=== PATIENT | male | born 1990 | race Caucasian/White ===

== ENCOUNTER → 2016-06-22 | Outpatient (CLI) | payer BC ==
[2016-06-22 13:58] LABS: MEAN CORPUSCULAR HEMOGLOBIN 31.6 pg (27.0-33.0); MEAN CORPUSCULAR HGB CONC 33.8 g/dl (32.0-36.5); MEAN CORPUSCULAR VOLUME 93.4 fl (80.0-96.0); RED CELL DISTRIBUTION WIDTH 11.9 % (11.5-14.5); WHITE BLOOD COUNT 5.8 K/mm3 (4.0-10.0)
[2016-06-22 14:25] LABS: HEPATITIS B SURFACE ANTIBODY POSITIVE (POSITIVE)
[2016-06-22 14:40] LABS: ALBUMIN 4.2 GM/DL (3.2-5.2); ALBUMIN/GLOBULIN RATIO 1.31 (1.00-1.93); ALKALINE PHOSPHATASE 50 U/L (45-117); ALT/SGPT 18 U/L (12-78); ANION GAP 10 MEQ/L (8-16); AST/SGOT 12 U/L (15-37); BILIRUBIN,TOTAL 0.6 MG/DL (0.2-1.0); BLOOD UREA NITROGEN 14 MG/DL (7-18); CALCIUM LEVEL 9.1 MG/DL (8.5-10.1); CARBON DIOXIDE LEVEL 30 MEQ/L (21-32); CHLORIDE LEVEL 101 MEQ/L (98-107); CREATININE FOR GFR 1.07 MG/DL (0.70-1.30); GLOMERULAR FILTRATION RATE > 60.0 (>60); GLUCOSE, FASTING 71 MG/DL (70-105); SODIUM LEVEL 141 MEQ/L (136-145); TOTAL PROTEIN 7.4 GM/DL (6.4-8.2)
[2016-06-24 08:06] LABS: ALT 14 IU/L (0-55); GGT 11 IU/L (0-65); HAPTOGLOBIN 96 mg/dL (34-200); NECROINFLAM SCORE 0.03 (0.00-0.17); NECROINFLAMM GRADE A0-No activity (.); TOTAL BILIRUBIN 0.6 mg/dL (0.0-1.2)
[2016-06-25 00:07] LABS: HEPATITIS C QUANTITATION HCV Not Detected IU/mL (.)
== END | disposition home or self-care (01) ==
LOC: M LAB 12:42
PROVIDERS: ATTEND Internal Medicine Cardiovascular Disease
DX: B18.2 Chronic viral hepatitis C (principal); B16.9 Acute hepatitis B without delta-agent and without hepatic coma; B15.9 Hepatitis A without hepatic coma; I10 Essential (primary) hypertension; D53.9 Nutritional anemia, unspecified

== ENCOUNTER 2016-06-25 15:05 | Emergency (ER) | payer BC ==
[2016-06-25 16:31] LABS: BASO % 0.3 % (0.0-1.0); EOS # 0.2 K/mm3 (0.0-0.50); EOS % 3.3 % (0.0-3.0); LARGE UNSTAINED CELL # 0.1 K/mm3 (0.0-0.4); LARGE UNSTAINED CELL % 1.5 % (0.0-4.0); LYMPH # 1.8 K/mm3 (1.5-6.5); LYMPH % 24.9 % (24.0-44.0); MEAN CORPUSCULAR HEMOGLOBIN 32.5 pg (27.0-33.0); MEAN CORPUSCULAR HGB CONC 34.7 g/dl (32.0-36.5); MEAN CORPUSCULAR VOLUME 93.7 fl (80.0-96.0); MONO # 0.3 K/mm3 (0.0-0.8); MONO % 4.4 % (0.0-5.0); NEUTROPHILS # 4.8 K/mm3 (1.8-7.7); NEUTROPHILS % 65.6 % (36.0-66.0); PLATELET COUNT, AUTOMATED 210 k/mm3 (150-450); WHITE BLOOD COUNT 7.3 K/mm3 (4.0-10.0)
[2016-06-25 16:55] LABS: ANION GAP 6 MEQ/L (8-16); BLOOD UREA NITROGEN 17 MG/DL (7-18); CALCIUM LEVEL 8.9 MG/DL (8.5-10.1); CARBON DIOXIDE LEVEL 33 MEQ/L (21-32); CHLORIDE LEVEL 103 MEQ/L (98-107); CREATININE FOR GFR 1.12 MG/DL (0.70-1.30); GLOMERULAR FILTRATION RATE > 60.0 (>60); GLUCOSE, FASTING 75 MG/DL (70-105); SODIUM LEVEL 142 MEQ/L (136-145)
--- NOTE | 2016-06-25 17:30 | REP ---
KUB: Single view. History: Gross hematuria. Findings: The bowel gas pattern is normal. There is no evidence of mass, organomegaly, or pathologic calcification. Psoas margins and flank stripes are intact. Impression: Negative KUB. Signed by Sukhwinder Norris MD 06/25/2016 05:36 P
--- NOTE | 2016-06-25 18:13 | EDDOCDS ---
Nurse's Notes [facility] Name: Munir Virgen Age: 25 yrs Sex: Male : 1990 Arrival Date: 06/25/2016 Time: 15:05 Bed PR1 / Private MD: Shashank Rodriguez MD Diagnosis: Hematuria-possible bilateral intrarenal calculi Presentation: 06/25 15:17 Presenting complaint: Patient states: "I got blood in my urine." States noticed 3-4 jc4 days ago. Denies any pain. Adult Sepsis Screening: The patient does not have new or worsening altered mentation. Patient's respiratory rate is less than 22. Systolic blood pressure is greater than 100. Patient has a qSOFA score of 0- Negative Sepsis Screen. Suicide/Homicide risk assessment- the patient denies having any suicidal and/or homicidal ideations and does not present with any other emotional, behavioral or mental health complaints. Status: Patient is not a public services assistant or dependent. Transition of care: patient was not received from another setting of care. 15:17 Acuity: MARY Level 3 jc4 15:17 Method Of Arrival: Walkin/Carried/Asstd jc4 Triage Assessment: 15:18 General: Appears in no apparent distress. Pain: Denies pain. Pt Declines HIV testing. jc4 Historical: - Allergies: no known allergies; - Home Meds: 1. buspirone 7.5 mg Oral tab 1 tab 2 times per day (Last dose: 06/25/2016 08:00) 2. trazodone 50 mg Oral tab 1 tab nightly (Last dose: 06/24/2016) - PMHx: Anxiety; - PSHx: none; - Social history: Smoking status: Patient uses tobacco products, heavy tobacco smoker. No barriers to communication noted, The patient speaks fluent Welsh. - Family history: Not pertinent. - : The pt / caregiver states he / she is not on anticoagulants. Home medication list is obtained from the patient. - Exposure Risk Screening:: None identified. Screenin:00 Screening information is obtained from the patient. Fall risk: No risks identified. js13 Assistance ADL's: requires no assistance with activities of daily living. Abuse/DV Screen: The patient / caregiver reports he/she is: not in a situation that causes fear, pain or injury. Nutritional screening: No deficits noted. Advance Directives: There is no active DNR order. home support is adequate. Assessment: 18:00 General: Appears in no apparent distress, Behavior is appropriate for age, cooperative. js13 Pain: Denies pain. Neurological: Level of Consciousness is awake, alert. Respiratory: Airway is patent Respiratory effort is even, unlabored, Respiratory pattern is regular, symmetrical. Derm: Skin is pink, warm & dry. Vital Signs: 15:08 BP 126 / 68; Pulse 83; Resp 18 S; Temp 97.5(O); Pulse Ox 97% on R/A; Weight 88.45 kg gr2 (R); Height 5 ft. 11 in. (180.34 cm) (R); Pain 2/10; 18:02 BP 122 / 64; Pulse 61; Resp 18; Temp 98.6(O); Pulse Ox 94% on R/A; Pain 0/10; dem1 15:08 Body Mass Index 27.20 (88.45 kg, 180.34 cm) gr2 Vitals: 15:08 Log In Time: June 25, 2016 at 15:08. gr2 ED Course: 15:06 Patient visited by John Jaime. gr2 15:06 Patient moved to Waiting gr2 15:07 Shashank Rodriguez is Private Physician. gr2 15:09 Patient visited by John Jaime. gr2 15:09 Patient moved to Pre RCE gr2 15:18 Triage Initiated jc4 15:19 Patient moved to Triage 3 jc4 16:03 [facility] ar2 16:03 Jade Varghese MD is Attending Physician. ar2 16:03 Patient visited by Pierce Franco PA-C. ar2 16:26 Urine Culture Sent. nb2 16:26 UA Sent. nb2 16:26 MED Profile Sent. nb2 16:26 CBC with Diff Sent. nb2 16:36 Patient moved to TR1 nb2 16:52 [facility] [place] was scanned into [employer] and attached to record. ks16 17:18 Patient visited by Mary Kate Jo RN. dls 17:25 Patient moved to Ultrasound br3 17:43 Patient moved to TR1 br3 17:44 Patient moved to PR1 / 25 nb2 17:51 KUB Returned. EDMS 18:00 The patient / caregiver is instructed regarding the plan of care and ED course. js13 18:00 No IV's were initiated during this patient's visit. No procedures done that require js13 assistance. 18:01 Patient visited by Tawana Kemp RN. js13 18:02 Patient visited by Morelia Reece. dem1 18:08 Roger Head is Referral Physician. ar2 Order Results: Lab Order: CBC with Diff; SPEC'M 06/25/16 16:23 Test: WHITE BLOOD COUNT; Value: 7.3; Range: 4.0-10.0; Units: K/mm3; Status: F Test: RED BLOOD COUNT; Value: 5.08; Range: 4.30-6.10; Units: M/mm3; Status: F Test: HEMOGLOBIN; Value: 16.5; Range: 14.0-18.0; Units: g/dl; Status: F Test: HEMATOCRIT; Value: 47.5; Range: 42.0-52.0; Units: %; Status: F Test: MEAN CORPUSCULAR VOLUME; Value: 93.7; Range: 80.0-96.0; Units: fl; Status: F Test: MEAN CORPUSCULAR HEMOGLOBIN; Value: 32.5; Range: 27.0-33.0; Units: pg; Status: F Test: MEAN CORPUSCULAR HGB CONC; Value: 34.7; Range: 32.0-36.5; Units: g/dl; Status: F Test: RED CELL DISTRIBUTION WIDTH; Value: 12.0; Range: 11.5-14.5; Units: %; Status: F Test: PLATELET COUNT, AUTOMATED; Value: 210; Range: 150-450; Units: k/mm3; Status: F Test: NEUTROPHILS %; Value: 65.6; Range: 36.0-66.0; Units: %; Status: F Test: LYMPH %; Value: 24.9; Range: 24.0-44.0; Units: %; Status: F Test: MONO %; Value: 4.4; Range: 0.0-5.0; Units: %; Status: F Test: EOS %; Value: 3.3; Range: 0.0-3.0; Abnormal: Above high normal; Units: %; Status: F Test: BASO %; Value: 0.3; Range: 0.0-1.0; Units: %; Status: F Test: LARGE UNSTAINED CELL %; Value: 1.5; Range: 0.0-4.0; Units: %; Status: F Test: NEUTROPHILS #; Value: 4.8; Range: 1.8-7.7; Units: K/mm3; Status: F Test: LYMPH #; Value: 1.8; Range: 1.5-6.5; Units: K/mm3; Status: F Test: MONO #; Value: 0.3; Range: 0.0-0.8; Units: K/mm3; Status: F Test: EOS #; Value: 0.2; Range: 0.0-0.50; Units: K/mm3; Status: F Test: BASO #; Value: 0.0; Range: 0.0-0.2; Units: K/mm3; Status: F Test: LARGE UNSTAINED CELL #; Value: 0.1; Range: 0.0-0.4; Units: K/mm3; Status: F Lab Order: MED Profile; [facility] 06/25/16 16:23 Test: GLUCOSE, FASTING; Value: 75; Range: 70-105; Units: MG/DL; Status: F Test: BLOOD UREA NITROGEN; Value: 17; Range: 7-18; Units: MG/DL; Status: F Test: CREATININE FOR GFR; Value: 1.12; Range: 0.70-1.30; Units: MG/DL; Status: F Test: GLOMERULAR FILTRATION RATE; Value: > 60.0; Range: >60; Status: F Test: SODIUM LEVEL; Value: 142; Range: 136-145; Units: MEQ/L; Status: F Test: POTASSIUM SERUM; Value: 4.0; Range: 3.5-5.1; Units: MEQ/L; Status: F Test: CHLORIDE LEVEL; Value: 103; Range: 98-107; Units: MEQ/L; Status: F Test: CARBON DIOXIDE LEVEL; Value: 33; Range: 21-32; Abnormal: Above high normal; Units: MEQ/L; Status: F Test: ANION GAP; Value: 6; Range: 8-16; Abnormal: Below low normal; Units: MEQ/L; Status: F Test: CALCIUM LEVEL; Value: 8.9; Range: 8.5-10.1; Units: MG/DL; Status: F Test Note: ; Units are mL/min/1.73 m2 Chronic Kidney Disease Staging per NKF: Stage I & II GFR >=60 Normal to Mildly Decreased Stage III GFR 30-59 Moderately Decreased Stage IV GFR 15-29 Severely Decreased Stage V GFR <15 Very Little GFR Left ESRD GFR <15 on [employer]ACT [employer] OPERATOR Lab Order: UA; SPEC'M 06/25/16 16:24 Test: APPEARANCE, URINE; Value: CLEAR; Range: CLEAR; Status: F Test: COLOR, URINE; Value: YELLOW; Range: YELLOW; Status: F Test: PH,URINE; Value: 5.0; Range: 5.0-9.0; Units: UNITS; Status: F Test: SPECIFIC GRAVITY URINE AUTO; Value: 1.018; Range: 1.002-1.035; Status: F Test: PROTEIN, URINE AUTO; Value: NEGATIVE; Range: NEGATIVE; Units: mg/dL; Status: F Test: GLUCOSE, URINE (UA) AUTO; Value: NEGATIVE; Range: NEGATIVE; Units: mg/dL; Status: F Test: KETONE, URINE AUTO; Value: NEGATIVE; Range: NEGATIVE; Units: mg/dL; Status: F Test: UROBILINOGEN, URINE AUTO; Value: 0.2; Range: 0.0-2.0; Units: mg/dL; Status: F Test: BILIRUBIN, URINE AUTO; Value: NEGATIVE; Range: NEGATIVE; Status: F Test: NITRITE, URINE AUTO; Value: NEGATIVE; Range: NEGATIVE; Status: F Test: LEUKOCYTE ESTERASE, URINE AUTO; Value: NEGATIVE; Range: NEGATIVE; Status: F Test: BLOOD, URINE BLOOD; Value: NEGATIVE; Range: NEGATIVE; Status: F Test: WBC, URINE AUTO; Value: 2; Range: 0-3; Units: /HPF; Status: F Test: RBC, URINE AUTO; Value: 0; Range: 0-3; Units: /HPF; Status: F Test: BACTERIA, URINE AUTO; Value: 1+; Range: NEGATIVE; Abnormal: Above high normal; Status: F Test: SQUAMOUS EPITHELIAL CELL UR AU; Value: 0; Range: 0-6; Units: /HPF; Status: F Test: HYALINE CAST, URINE AUTO; Value: 0; Range: 0-1; Units: /LPF; Status: F Radiology Order: KUB Test: KUB REASON FOR EXAMINATION: gross hematuria; KUB: Single view.; ; History: Gross hematuria.; ; Findings: The bowel gas pattern is normal. There is no evidence of mass,; organomegaly, or pathologic calcification. Psoas margins and flank stripes are; intact.; ; Impression:; ; Negative KUB.; ; ; Signed by; Sukhwinder Norris MD 06/25/2016 05:36 P; Outcome: 18:09 Discharge ordered by Provider. ar2 18:12 Discharge Assessment: Patient awake, alert and oriented x 3. No cognitive and/or js13 functional deficits noted. Patient verbalized understanding of disposition instructions. patient administered narcotics - no. The following High Risk Discharge criteria are identified: None. Discharged to home ambulatory. Condition: good. Discharge instructions given to patient, Instructed on discharge instructions, follow up and referral plans. Demonstrated understanding of instructions, Pt was receptive of discharge instructions/ teaching. No special radiology studies were completed. Property :Personal belongings accompany Pt. 18:12 Patient left the ED. js13 Signatures: Dispatcher [employer] EDMS Mary Kate Jo, RN RN dls Pierce Franco, PA-Chetan PA-C ar2 Rebecca Jaime br3 Tawana Tineo, RN RN [email or web address] Morelia Reece Jennifer,CURT RN js13 John Jaime gr2 Amaris Carter, Reg Reg ks16 Muriel Contreras2 MTDD
--- NOTE | 2016-06-25 18:13 | EDDOCDS ---
Physician Documentation [facility] Name: Munir Virgen Age: 25 yrs Sex: Male : 1990 Arrival Date: 06/25/2016 Time: 15:05 Bed PR Private MD: Shashank Rodriguez MD Disposition: 06/25/16 18:09 Discharged to Home/Self Care. Impression: Hematuria - possible bilateral intrarenal calculi. - Condition is Stable. - Discharge Instructions: Hematuria, Adult, Kidney Stones. - Medication Reconciliation, Local Pharmacy Hours form. - Follow up: Roger Head; When: Call to arrange an appointment; Reason: Recheck today's complaints, Continuance of care. - Problem is new. - Symptoms have improved. Historical: - Allergies: no known allergies; - Home Meds: 1. buspirone 7.5 mg Oral tab 1 tab 2 times per day (Last dose: 06/25/2016 08:00) 2. trazodone 50 mg Oral tab 1 tab nightly (Last dose: 06/24/2016) - PMHx: Anxiety; - PSHx: none; - Social history: Smoking status: Patient uses tobacco products, heavy tobacco smoker. No barriers to communication noted, The patient speaks fluent Wolof. - Family history: Not pertinent. - : The pt / caregiver states he / she is not on anticoagulants. Home medication list is obtained from the patient. - Exposure Risk Screening:: None identified. Vital Signs: 06/25 15:08 BP 126 / 68; Pulse 83; Resp 18 S; Temp 97.5(O); Pulse Ox 97% on R/A; Weight 88.45 kg / gr2 195 lbs (R); Height 5 ft. 11 in. (180.34 cm) (R); Pain 2/10; 18:02 BP 122 / 64; Pulse 61; Resp 18; Temp 98.6(O); Pulse Ox 94% on R/A; Pain 0/10; dem1 15:08 Body Mass Index 27.20 (88.45 kg, 180.34 cm) gr2 MDM: 16:17 CBC with Diff Ordered. EDMS 16:17 MED Profile Ordered. EDMS 16:17 UA Ordered. EDMS 16:17 Urine Culture Ordered. EDMS 16:18 Renal US Ordered. EDMS 16:18 KUB Ordered. EDMS 16:23 Financial registration complete. [email or web address] 16:52 [facility] Payment Agreement was scanned into [employer] and attached to record. ks16 17:06 CBC with Diff Reviewed. ar2 17:06 MED Profile Reviewed. ar2 17:06 UA Reviewed. ar2 Signatures: Dispatcher [employer] EDMS Pierce Franco PA-C PA-C ar2 Tawana Tineo RN RN jc4 Tawana Kemp RN RN js13 Amaris Carter, Reg Reg ks16 The chart was reviewed and I authenticate all verbal orders and agree with the evaluation and treatment provided.Attachments: 16:52 [facility] Payment Agreement ks16 MTDD
--- NOTE | 2016-06-25 18:20 | REPUSA ---
CLINICAL HISTORY: Gross hematuria. TECHNIQUE: Realtime sonographic images were obtained in multiple projections. COMMENTS: The right kidney measures 11.6 x 6.1 x 5.3 cm and the left kidney measures 13.2 x 5.6 x 5.4 cm. Both kidneys are free of hydronephrosis. Right kidney shows several small echogenic foci which may repre sent small nonobstructive stones versus vascular calcifications. Left kidney shows bilateral small linear echogenic foci also compatible with nonobstructive stones ve rsus vascular calcifications. IMPRESSION: Bilateral renal echogenic foci represent small nonobstructing stones versus vascular calcifications. Consider follow-up with CT. Thank you for your kind referral of this patient. We appreciate the opportunity to participate in thi s patient's care.
--- NOTE | 2016-06-28 11:29 | EDDOCDS ---
Physician Documentation [facility] Name: Munir Virgen Age: 25 yrs Sex: Male : 1990 Arrival Date: 06/25/2016 Time: 15:05 Bed PR Private MD: Shashank Rodriguez MD Disposition: 06/25/16 18:09 Discharged to Home/Self Care. Impression: Hematuria - possible bilateral intrarenal calculi. - Condition is Stable. - Discharge Instructions: Hematuria, Adult, Kidney Stones. - Medication Reconciliation, Local Pharmacy Hours form. - Follow up: Roger Maria; When: Call to arrange an appointment; Reason: Recheck today's complaints, Continuance of care. - Problem is new. - Symptoms have improved. Historical: - Allergies: no known allergies; - Home Meds: 1. buspirone 7.5 mg Oral tab 1 tab 2 times per day (Last dose: 06/25/2016 08:00) 2. trazodone 50 mg Oral tab 1 tab nightly (Last dose: 06/24/2016) - PMHx: Anxiety; - PSHx: none; - Social history: Smoking status: Patient uses tobacco products, heavy tobacco smoker. No barriers to communication noted, The patient speaks fluent Azeri. - Family history: Not pertinent. - : The pt / caregiver states he / she is not on anticoagulants. Home medication list is obtained from the patient. - Exposure Risk Screening:: None identified. Vital Signs: 06/25 15:08 BP 126 / 68; Pulse 83; Resp 18 S; Temp 97.5(O); Pulse Ox 97% on R/A; Weight 88.45 kg / gr2 195 lbs (R); Height 5 ft. 11 in. (180.34 cm) (R); Pain 2/10; 18:02 BP 122 / 64; Pulse 61; Resp 18; Temp 98.6(O); Pulse Ox 94% on R/A; Pain 0/10; dem1 15:08 Body Mass Index 27.20 (88.45 kg, 180.34 cm) gr2 MDM: 16:17 CBC with Diff Ordered. EDMS 16:17 MED Profile Ordered. EDMS 16:17 UA Ordered. EDMS 16:17 Urine Culture Ordered. EDMS 16:18 Renal US Ordered. EDMS 16:18 KUB Ordered. EDMS 16:23 Financial registration complete. [email or web address] 16:52 [facility] [place] was scanned into [employer] and attached to record. ks16 17:06 CBC with Diff Reviewed. ar2 17:06 MED Profile Reviewed. ar2 17:06 UA Reviewed. ar2 19:31 ED course: dr maria faxed formal report of ct abd/p for fu mlg. ml 21:03 T-Sheet-- Draft Copy was scanned into [employer] and attached to record. klr 06/26 09:31 Radiology Report was scanned into MEDHOST and attached to record. gb Signatures: Dispatcher [employer] EDMS Jade Varghese MD MD ml Marcella King, Reg Reg gb Pierce Franco, TAI PAEmil ar2 Tawana Tineo, RN RN jc4 Tawana Kemp,CURT RN js13 Amaris Carter, Reg Reg ks16 Dianne Morrow klselene The chart was reviewed and I authenticate all verbal orders and agree with the evaluation and treatment provided.Attachments: 06/25 16:52 [facility] [place] ks16 21:03 T-Sheet-- Draft Copy klr Chart Complete MTDD
--- NOTE | 2016-06-28 11:29 | EDDOCDS ---
Physician Documentation [facility] Name: Munir Virgen Age: 25 yrs Sex: Male : 1990 Arrival Date: 06/25/2016 Time: 15:05 Bed PR Private MD: Shashank Rodriguez MD Disposition: 06/25/16 18:09 Discharged to Home/Self Care. Impression: Hematuria - possible bilateral intrarenal calculi. - Condition is Stable. - Discharge Instructions: Hematuria, Adult, Kidney Stones. - Medication Reconciliation, Local Pharmacy Hours form. - Follow up: Roger Maria; When: Call to arrange an appointment; Reason: Recheck today's complaints, Continuance of care. - Problem is new. - Symptoms have improved. Historical: - Allergies: no known allergies; - Home Meds: 1. buspirone 7.5 mg Oral tab 1 tab 2 times per day (Last dose: 06/25/2016 08:00) 2. trazodone 50 mg Oral tab 1 tab nightly (Last dose: 06/24/2016) - PMHx: Anxiety; - PSHx: none; - Social history: Smoking status: Patient uses tobacco products, heavy tobacco smoker. No barriers to communication noted, The patient speaks fluent Croatian. - Family history: Not pertinent. - : The pt / caregiver states he / she is not on anticoagulants. Home medication list is obtained from the patient. - Exposure Risk Screening:: None identified. Vital Signs: 06/25 15:08 BP 126 / 68; Pulse 83; Resp 18 S; Temp 97.5(O); Pulse Ox 97% on R/A; Weight 88.45 kg / gr2 195 lbs (R); Height 5 ft. 11 in. (180.34 cm) (R); Pain 2/10; 18:02 BP 122 / 64; Pulse 61; Resp 18; Temp 98.6(O); Pulse Ox 94% on R/A; Pain 0/10; dem1 15:08 Body Mass Index 27.20 (88.45 kg, 180.34 cm) gr2 MDM: 16:17 CBC with Diff Ordered. EDMS 16:17 MED Profile Ordered. EDMS 16:17 UA Ordered. EDMS 16:17 Urine Culture Ordered. EDMS 16:18 Renal US Ordered. EDMS 16:18 KUB Ordered. EDMS 16:23 Financial registration complete. [email or web address] 16:52 [facility] [place] Payment Agreement was scanned into [employer]apid[employer] and attached to record. ks16 17:06 CBC with Diff Reviewed. ar2 17:06 MED Profile Reviewed. ar2 17:06 UA Reviewed. ar2 19:31 ED course: dr maria faxed formal report of ct abd/p for fu mlg. ml 21:03 T-Sheet-- Draft Copy was scanned into [employer] and attached to record. klr 06/26 09:31 Radiology Report was scanned into MEDHOST and attached to record. gb Signatures: Dispatcher [employer] EDMS Jade Varghese MD MD ml Marcella King, Reg Reg gb Pierce Franco, TAI PAEmil ar2 Tawana Tineo, RN RN jc4 Tawana Kemp,CURT RN js13 Amaris Carter, Reg Reg ks16 Dianne Morrow klselene The chart was reviewed and I authenticate all verbal orders and agree with the evaluation and treatment provided.Attachments: 06/25 16:52 [facility] [place] Payment Agreement ks16 21:03 T-Sheet-- Draft Copy klr Chart Complete MTDD
--- NOTE | 2016-06-28 11:30 | EDDOCDS ---
Nurse's Notes [facility] Name: Munir Virgen Age: 25 yrs Sex: Male : 1990 Arrival Date: 06/25/2016 Time: 15:05 Bed PR1 / Private MD: Shashank Rodriguez MD Diagnosis: Hematuria-possible bilateral intrarenal calculi Presentation: 06/25 15:17 Presenting complaint: Patient states: "I got blood in my urine." States noticed 3-4 jc4 days ago. Denies any pain. Adult Sepsis Screening: The patient does not have new or worsening altered mentation. Patient's respiratory rate is less than 22. Systolic blood pressure is greater than 100. Patient has a qSOFA score of 0- Negative Sepsis Screen. Suicide/Homicide risk assessment- the patient denies having any suicidal and/or homicidal ideations and does not present with any other emotional, behavioral or mental health complaints. 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 Transition of care: patient was not received from another setting of care. 15:17 Acuity: MARY Level 3 jc4 15:17 Method Of Arrival: Walkin/Carried/Asstd jc4 Triage Assessment: 15:18 General: Appears in no apparent distress. Pain: Denies pain. Pt Declines HIV testing. jc4 Historical: - Allergies: no known allergies; - Home Meds: 1. buspirone 7.5 mg Oral tab 1 tab 2 times per day (Last dose: 06/25/2016 08:00) 2. trazodone 50 mg Oral tab 1 tab nightly (Last dose: 06/24/2016) - PMHx: Anxiety; - PSHx: none; - Social history: Smoking status: Patient uses tobacco products, heavy tobacco smoker. No barriers to communication noted, The patient speaks fluent Wallisian. - Family history: Not pertinent. - : The pt / caregiver states he / she is not on anticoagulants. Home medication list is obtained from the patient. - Exposure Risk Screening:: None identified. Screenin:00 Screening information is obtained from the patient. Fall risk: No risks identified. js13 Assistance ADL's: requires no assistance with activities of daily living. Abuse/DV Screen: The patient / caregiver reports he/she is: not in a situation that causes fear, pain or injury. Nutritional screening: No deficits noted. Advance Directives: There is no active DNR order. home support is adequate. Assessment: 18:00 General: Appears in no apparent distress, Behavior is appropriate for age, cooperative. js13 Pain: Denies pain. Neurological: Level of Consciousness is awake, alert. Respiratory: Airway is patent Respiratory effort is even, unlabored, Respiratory pattern is regular, symmetrical. Derm: Skin is pink, warm & dry. Vital Signs: 15:08 BP 126 / 68; Pulse 83; Resp 18 S; Temp 97.5(O); Pulse Ox 97% on R/A; Weight 88.45 kg gr2 (R); Height 5 ft. 11 in. (180.34 cm) (R); Pain 2/10; 18:02 BP 122 / 64; Pulse 61; Resp 18; Temp 98.6(O); Pulse Ox 94% on R/A; Pain 0/10; dem1 15:08 Body Mass Index 27.20 (88.45 kg, 180.34 cm) gr2 Vitals: 15:08 Log In Time: June 25, 2016 at 15:08. gr2 ED Course: 15:06 Patient visited by John Jaime. gr2 15:06 Patient moved to Waiting gr2 15:07 Shashank Rodriguez is Private Physician. gr2 15:09 Patient visited by John Jaime. gr2 15:09 Patient moved to Pre RCE gr2 15:18 Triage Initiated jc4 15:19 Patient moved to Triage 3 jc4 16:03 Pierce Franco [facility]. ar2 16:03 Jade Varghese MD is Attending Physician. ar2 16:03 Patient visited by Pierce Franco PA-C. ar2 16:26 Urine Culture Sent. nb2 16:26 UA Sent. nb2 16:26 MED Profile Sent. nb2 16:26 CBC with Diff Sent. nb2 16:36 Patient moved to TR1 nb2 16:52 [facility] [place] Payment Agreement was scanned into [employer] and attached to record. ks16 17:18 Patient visited by Mary Kate Jo RN. dls 17:25 Patient moved to Ultrasound br3 17:43 Patient moved to TR1 br3 17:44 Patient moved to PR1 / 25 nb2 17:51 KUB Returned. EDMS 18:00 The patient / caregiver is instructed regarding the plan of care and ED course. js13 18:00 No IV's were initiated during this patient's visit. No procedures done that require js13 assistance. 18:01 Patient visited by Tawana Kemp RN. js13 18:02 Patient visited by Morelia Reece. dem1 18:08 Roger Head is Referral Physician. ar2 18:34 Renal US Returned. EDMS 21:03 T-Sheet-- Draft Copy was scanned into [employer] and attached to record. klr 01 09:31 Radiology Report was scanned into [employer] and attached to record. gb Order Results: Lab Order: CBC with Diff; SPEC'M 06/25/16 16:23 Test: WHITE BLOOD COUNT; Value: 7.3; Range: 4.0-10.0; Units: K/mm3; Status: F Test: RED BLOOD COUNT; Value: 5.08; Range: 4.30-6.10; Units: M/mm3; Status: F Test: HEMOGLOBIN; Value: 16.5; Range: 14.0-18.0; Units: g/dl; Status: F Test: HEMATOCRIT; Value: 47.5; Range: 42.0-52.0; Units: %; Status: F Test: MEAN CORPUSCULAR VOLUME; Value: 93.7; Range: 80.0-96.0; Units: fl; Status: F Test: MEAN CORPUSCULAR HEMOGLOBIN; Value: 32.5; Range: 27.0-33.0; Units: pg; Status: F Test: MEAN CORPUSCULAR HGB CONC; Value: 34.7; Range: 32.0-36.5; Units: g/dl; Status: F Test: RED CELL DISTRIBUTION WIDTH; Value: 12.0; Range: 11.5-14.5; Units: %; Status: F Test: PLATELET COUNT, AUTOMATED; Value: 210; Range: 150-450; Units: k/mm3; Status: F Test: NEUTROPHILS %; Value: 65.6; Range: 36.0-66.0; Units: %; Status: F Test: LYMPH %; Value: 24.9; Range: 24.0-44.0; Units: %; Status: F Test: MONO %; Value: 4.4; Range: 0.0-5.0; Units: %; Status: F Test: EOS %; Value: 3.3; Range: 0.0-3.0; Abnormal: Above high normal; Units: %; Status: F Test: BASO %; Value: 0.3; Range: 0.0-1.0; Units: %; Status: F Test: LARGE UNSTAINED CELL %; Value: 1.5; Range: 0.0-4.0; Units: %; Status: F Test: NEUTROPHILS #; Value: 4.8; Range: 1.8-7.7; Units: K/mm3; Status: F Test: LYMPH #; Value: 1.8; Range: 1.5-6.5; Units: K/mm3; Status: F Test: MONO #; Value: 0.3; Range: 0.0-0.8; Units: K/mm3; Status: F Test: EOS #; Value: 0.2; Range: 0.0-0.50; Units: K/mm3; Status: F Test: BASO #; Value: 0.0; Range: 0.0-0.2; Units: K/mm3; Status: F Test: LARGE UNSTAINED CELL #; Value: 0.1; Range: 0.0-0.4; Units: K/mm3; Status: F Lab Order: MED Profile; SPEC'M 06/25/16 16:23 Test: GLUCOSE, FASTING; Value: 75; Range: 70-105; Units: MG/DL; Status: F Test: BLOOD UREA NITROGEN; Value: 17; Range: 7-18; Units: MG/DL; Status: F Test: CREATININE FOR GFR; Value: 1.12; Range: 0.70-1.30; Units: MG/DL; Status: F Test: GLOMERULAR FILTRATION RATE; Value: > 60.0; Range: >60; Status: F Test: SODIUM LEVEL; Value: 142; Range: 136-145; Units: MEQ/L; Status: F Test: POTASSIUM SERUM; Value: 4.0; Range: 3.5-5.1; Units: MEQ/L; Status: F Test: CHLORIDE LEVEL; Value: 103; Range: 98-107; Units: MEQ/L; Status: F Test: CARBON DIOXIDE LEVEL; Value: 33; Range: 21-32; Abnormal: Above high normal; Units: MEQ/L; Status: F Test: ANION GAP; Value: 6; Range: 8-16; Abnormal: Below low normal; Units: MEQ/L; Status: F Test: CALCIUM LEVEL; Value: 8.9; Range: 8.5-10.1; Units: MG/DL; Status: F Test Note: ; Units are mL/min/1.73 m2 Chronic Kidney Disease Staging per NKF: Stage I & II GFR >=60 Normal to Mildly Decreased Stage III GFR 30-59 Moderately Decreased Stage IV GFR 15-29 Severely Decreased Stage V GFR <15 Very Little GFR Left ESRD GFR <15 on [facility] Lab Order: UA; SPEC'M 06/25/16 16:24 Test: APPEARANCE, URINE; Value: CLEAR; Range: CLEAR; Status: F Test: COLOR, URINE; Value: YELLOW; Range: YELLOW; Status: F Test: PH,URINE; Value: 5.0; Range: 5.0-9.0; Units: UNITS; Status: F Test: SPECIFIC GRAVITY URINE AUTO; Value: 1.018; Range: 1.002-1.035; Status: F Test: PROTEIN, URINE AUTO; Value: NEGATIVE; Range: NEGATIVE; Units: mg/dL; Status: F Test: GLUCOSE, URINE (UA) AUTO; Value: NEGATIVE; Range: NEGATIVE; Units: mg/dL; Status: F Test: KETONE, URINE AUTO; Value: NEGATIVE; Range: NEGATIVE; Units: mg/dL; Status: F Test: UROBILINOGEN, URINE AUTO; Value: 0.2; Range: 0.0-2.0; Units: mg/dL; Status: F Test: BILIRUBIN, URINE AUTO; Value: NEGATIVE; Range: NEGATIVE; Status: F Test: NITRITE, URINE AUTO; Value: NEGATIVE; Range: NEGATIVE; Status: F Test: LEUKOCYTE ESTERASE, URINE AUTO; Value: NEGATIVE; Range: NEGATIVE; Status: F Test: BLOOD, URINE BLOOD; Value: NEGATIVE; Range: NEGATIVE; Status: F Test: WBC, URINE AUTO; Value: 2; Range: 0-3; Units: /HPF; Status: F Test: RBC, URINE AUTO; Value: 0; Range: 0-3; Units: /HPF; Status: F Test: BACTERIA, URINE AUTO; Value: 1+; Range: NEGATIVE; Abnormal: Above high normal; Status: F Test: SQUAMOUS EPITHELIAL CELL UR AU; Value: 0; Range: 0-6; Units: /HPF; Status: F Test: HYALINE CAST, URINE AUTO; Value: 0; Range: 0-1; Units: /LPF; Status: F Lab Order: Urine Culture; SPEC'M 06/25/16 16:24 Test: URINE CULTURE; Value: URINE CULTURE RESULT NO GROWTH; Status: F Radiology Order: Renal US Test: Renal US REASON FOR EXAMINATION: gross hematuria; ; CLINICAL HISTORY: Gross hematuria.; ; TECHNIQUE: Realtime sonographic images were obtained in multiple projections.; ; COMMENTS:; The right kidney measures 11.6 x 6.1 x 5.3 cm and the left kidney measures 13.2 x 5.6 x 5.4 cm. Both; kidneys are free of hydronephrosis. Right kidney shows several small echogenic foci which may repre; sent small nonobstructive stones versus vascular calcifications.; Left kidney shows bilateral small linear echogenic foci also compatible with nonobstructive stones ve; rsus vascular calcifications.; ; IMPRESSION:; Bilateral renal echogenic foci represent small nonobstructing stones versus vascular calcifications.; Consider follow-up with CT.; ; ; Thank you for your kind referral of this patient. We appreciate the opportunity to participate in [facility]; s patient's care.; ; Radiology Order: KUB Test: KUB REASON FOR EXAMINATION: gross hematuria; KUB: Single view.; ; History: Gross hematuria.; ; Findings: The bowel gas pattern is normal. There is no evidence of mass,; organomegaly, or pathologic calcification. Psoas margins and flank stripes are; intact.; ; Impression:; ; Negative KUB.; ; ; Signed by; Sukhwinder Norris MD 06/25/2016 05:36 P; Outcome: 06/25 18:09 Discharge ordered by Provider. ar2 18:12 Discharge Assessment: Patient awake, alert and oriented x 3. No cognitive and/or js13 functional deficits noted. Patient verbalized understanding of disposition instructions. patient administered narcotics - no. The following High Risk Discharge criteria are identified: None. Discharged to home ambulatory. Condition: good. Discharge instructions given to patient, Instructed on discharge instructions, follow up and referral plans. Demonstrated understanding of instructions, Pt was receptive of discharge instructions/ teaching. No special radiology studies were completed. Property :Personal belongings accompany Pt. 18:12 Patient left the ED. js13 Signatures: Dispatcher [employer] EDMS Mary Kate Jo, RN RN dls Marcella King, Reg Reg gb Pierce Franco, TAI PAEmil ar2 Rebecca Jaime br3 Tawana Tineo, CURT RN jc4 Morelia Reece1 Tawana Kemp RN RN js13 John Jaime gr2 Amaris Carter, Reg Reg ks16 Dianne Morrow Nicole nb2 Chart Complete MTDKailyn
== END 2016-06-25 18:12 | disposition home or self-care (01) ==
LOC: M ED 15:05
DX: R31.9 Hematuria, unspecified (principal); F41.9 Anxiety disorder, unspecified; Z79.899 Other long term (current) drug therapy

== ENCOUNTER 2016-07-05 20:14 | Emergency (ER) | payer BC | END 2016-07-05 21:32 | disposition left against medical advice (07) | LOC: M ED 20:14 | DX: R51 Headache (principal); F41.9 Anxiety disorder, unspecified; F17.210 Nicotine dependence, cigarettes, uncomplicated; Z79.899 Other long term (current) drug therapy; Z53.21 Procedure and treatment not carried out due to patient leaving prior to being seen by health care provider ==

== ENCOUNTER 2016-11-12 07:35 | Emergency (ER) | payer BC ==
[~2016-11-12] VITALS: Ht 180.3 cm; Wt 95.3 kg
[2016-11-12] MEDS ORDERED: SULFAMETHOXAZOLE-TMP (07:48)
[2016-11-12] MEDS ORDERED: BUSP15TA47 (07:48)
[2016-11-12 08:30] LABS: BASO % 0.6 % (0.0-1.0); EOS # 0.3 K/mm3 (0.0-0.50); EOS % 2.8 % (0.0-3.0); LARGE UNSTAINED CELL # 0.1 K/mm3 (0.0-0.4); LARGE UNSTAINED CELL % 0.6 % (0.0-4.0); LYMPH # 1.5 K/mm3 (1.5-6.5); LYMPH % 14.7 % (24.0-44.0); MEAN CORPUSCULAR HEMOGLOBIN 32.9 pg (27.0-33.0); MEAN CORPUSCULAR HGB CONC 34.9 g/dl (32.0-36.5); MEAN CORPUSCULAR VOLUME 94.3 fl (80.0-96.0); MONO # 0.6 K/mm3 (0.0-0.8); MONO % 5.7 % (0.0-5.0); NEUTROPHILS # 7.3 K/mm3 (1.8-7.7); NEUTROPHILS % 75.6 % (36.0-66.0); PLATELET COUNT, AUTOMATED 206 k/mm3 (150-450); RED CELL DISTRIBUTION WIDTH 12.4 % (11.5-14.5); WHITE BLOOD COUNT 9.6 K/mm3 (4.0-10.0)
[2016-11-12 08:42] LABS: ANION GAP 4 MEQ/L (8-16); BLOOD UREA NITROGEN 16 MG/DL (7-18); CALCIUM LEVEL 9.2 MG/DL (8.5-10.1); CARBON DIOXIDE LEVEL 32 MEQ/L (21-32); CHLORIDE LEVEL 103 MEQ/L (98-107); CREATININE FOR GFR 1.17 MG/DL (0.70-1.30); GLOMERULAR FILTRATION RATE > 60.0 (>60); GLUCOSE, FASTING 98 MG/DL (70-105); POTASSIUM SERUM 3.8 MEQ/L (3.5-5.1); SODIUM LEVEL 139 MEQ/L (136-145)
[2016-11-12] MEDS ORDERED: LIDOCAINE 1% MDV 20ML VIAL SC ONE (09:15)
[2016-11-12] MEDS ORDERED: CLINDAMYCIN 900 MG in APPROPRIATE DILUENT 1 EA IV ONE (09:15)
--- NOTE | 2016-11-12 09:16 | REP ---
Clinical: Left axillary pain and swelling. Rule out abscess. Technique: Real time baker scale and color evaluation using linear high frequency and curved array transducers. Findings: Directed ultrasound examination at the region of maximal tenderness within the left axilla demonstrates a markedly heterogeneous fluid collection measuring 3.4 x 1.0 x 2.7 cm with surrounding subcutaneous edema. Impression: Complex collection compatible with abscess and/or hematoma. Correlation with physical examination and history is recommended. Signed by Michi Swenson MD 11/12/2016 09:08 A
[2016-11-12] MEDS ORDERED: KETOROLAC 30 MG/ML VIAL (J1885) IV ONE (09:30)
[2016-11-12 10:43] VITALS: BP 126/70
== END 2016-11-12 10:59 | disposition home or self-care (01) ==
LOC: EEVIPCON 08:36 → M ED 08:36
DX: L02.412 Cutaneous abscess of left axilla (principal); F17.200 Nicotine dependence, unspecified, uncomplicated; Z79.899 Other long term (current) drug therapy
CPT/HCPCS: 10160; 36415; 76882; 80048; 85025; 87040; 87070; 87077; 87186; 87205; 96365; 96375; 99283; J1885

== ENCOUNTER 2022-11-29 09:52 | Emergency (ER) | payer BC, OTHER, SELFPAY ==
[~2022-11-29] VITALS: Ht 180.3 cm; Wt 80.9 kg
[~2022-11-29 09:52] MED LIST: BUSP15TA47; SULFAMETHOXAZOLE-TMP
[2022-11-29 09:53] VITALS: BP 160/92; TEMP 98.5; O2SAT 98
[2022-11-29] MEDS ORDERED: BUPR1SUB5 SL (09:59)
[2022-11-30] MEDS ORDERED: SERT25TA21 PO (09:31)
[2022-11-30] MEDS ORDERED: CYAN1000VL IM (09:31)
[2022-11-30] MEDS ORDERED: FLOM0.4C39 PO (09:31)
[2022-11-30] MEDS ORDERED: MED REC COMMENT (09:33)
== END 2022-11-29 11:42 | disposition left against medical advice (07) ==
LOC: M ED 09:52
DX: Z53.21 Procedure and treatment not carried out due to patient leaving prior to being seen by health care provider (principal)

== ENCOUNTER 2022-11-29 17:11 | Inpatient (IN) | payer OTHER ==
[~2022-11-29] VITALS: Ht 180.3 cm; Wt 86.4 kg
[~2022-11-29 17:11] MED LIST changes: +BUPR1SUB5 SL
[2022-11-29] MEDS ORDERED: NS 1,000 ML IV ONE ×2 (19:15→19:25)
[2022-11-29] MEDS ORDERED: MORPHINE 4 MG/ML 1ML VIAL IV ONE (19:15)
[2022-11-29] MEDS ORDERED: ONDANSETRON 4MG 2ML VIAL IV ONE (19:15)
[2022-11-29] MEDS ORDERED: cefTRIAXone SOD 1 GM in D5W MINI-BAG PLUS 50 ML IV ONE (19:15)
[2022-11-29 19:56] LABS: BASO % 0.2 % (0.0-1.0); HEMATOCRIT 40.8 % (42.0-52.0); HEMOGLOBIN 14.2 g/dl (13.5-17.5); LYMPH # 0.9 10^3/uL (1.5-5.0); LYMPH % 6.7 % (24.0-44.0); MEAN CORPUSCULAR HEMOGLOBIN 31.5 pg (27.0-33.0); MEAN CORPUSCULAR HGB CONC 34.8 g/dl (32.0-36.5); MEAN CORPUSCULAR VOLUME 90.5 fl (80.0-96.0); MONO # 1.2 10^3/uL (0.0-0.8); MONO % 8.9 % (2.0-8.0); NEUTROPHILS # 11.5 10^3/uL (1.5-8.5); NEUTROPHILS % 83.8 % (36.0-66.0); PLATELET COUNT, AUTOMATED 198 10^3/uL (150-450); RED BLOOD COUNT 4.51 10^6/uL (4.30-6.10); WHITE BLOOD COUNT 13.8 10^3/uL (4.0-10.0)
[2022-11-29 20:04] LABS: ERYTHROCYTE SEDIMENTATION RATE 26 mm/hr (0-15)
[2022-11-29] MEDS ORDERED: VANCOMYCIN HCL 1,750 MG in NS 250 ML IV ONE (21:20)
[2022-11-29] MEDS ORDERED: fentaNYL 100 MCG/2 ML INJECTION IV ONE ×2 (21:25→22:00)
[2022-11-29] MEDS ORDERED: VANCOMYCIN HCL 1,000 MG, VIAL MATE ADAPTER 1 EACH in D5W 250 ML IV ONE (21:30)
[2022-11-29] MEDS ORDERED: KETOROLAC 30 MG/ML 1ML VIAL IV ONE (22:05)
[2022-11-29] MEDS ORDERED: ACETAMINOPHEN 500 MG TAB PO PRN (22:20)
[2022-11-29] MEDS ORDERED: NS 1,000 ML IV SCH (22:20)
[2022-11-29] MEDS ORDERED: HYDROmorphone HCL 2MG/ML 1ML VIAL IV PRN (22:20)
[2022-11-29] MEDS ORDERED: VANCOMYCIN HCL 750 MG, VIAL MATE ADAPTER 1 EACH in D5W 250 ML IV ONE (22:30)
[2022-11-29 22:36] LABS: RSV AMPLIFICATION NEGATIVE (NEGATIVE)
[2022-11-30] MEDS ORDERED: PIPERACILLIN/TAZOBACTAM SOD 4.5 GM in D5W MINI-BAG PLUS 50 ML IV SCH ×2
[2022-11-30 00:05] VITALS: BP 133/82; TEMP 100.9; O2SAT 96
[2022-11-30] MEDS ORDERED: VANCOMYCIN HCL 1,000 MG, VIAL MATE ADAPTER 1 EACH in NS 250 ML IV SCH (05:00)
[2022-11-30] MEDS ORDERED: HEPARIN SOD (PORCINE) 5000UNITS/ML 1ML VIAL/SYRINGE SC SCH (06:00)
[2022-11-30] MEDS ORDERED: CYAN1000VL IM (09:31)
[2022-11-30] MEDS ORDERED: FLOM0.4C39 PO (09:31)
[2022-11-30] MEDS ORDERED: SERT25TA21 PO (09:31)
[2022-11-30] MEDS ORDERED: MED REC COMMENT (09:33)
== END 2022-11-30 03:54 | disposition left against medical advice (07) | DRG 720 ==
LOC: M ED 17:11 → EDBD 17:11 → M ED INP 22:17
PROVIDERS: ADMIT Family Medicine; ATTEND Family Medicine
DX: A41.9 Sepsis, unspecified organism (principal); L03.113 Cellulitis of right upper limb

== ENCOUNTER 2022-11-30 07:54 | Inpatient (IN) | payer OTHER ==
[~2022-11-30] VITALS: Ht 180.3 cm; Wt 83.6 kg
[2022-11-30] MEDS ORDERED: FLOM0.4C39 PO (09:31)
[2022-11-30] MEDS ORDERED: CYAN1000VL IM (09:31)
[2022-11-30] MEDS ORDERED: SERT25TA21 PO (09:31)
[2022-11-30] MEDS ORDERED: MED REC COMMENT (09:33)
[2022-11-30] MEDS ORDERED: HOME MED LIST COMPLETE! XX SCH (09:35)
[2022-11-30] MEDS ORDERED: BOOSTRIX VACCINE (TETANUS/DIPHTH/ACEL. PERTUSSIS) 0.5ML SYR IM.IMMUN ONE (09:40)
[2022-11-30] MEDS ORDERED: NS 1,000 ML IV SCH (09:40)
[2022-11-30] MEDS ORDERED: AMPICILLIN SOD/SULBACTAM SOD 3 GM in D5W MINI-BAG PLUS 100 ML IV ONE (09:40)
[2022-11-30] MEDS ORDERED: MOM 30ML SUSPENSION UDC PO PRN (09:50)
[2022-11-30] MEDS ORDERED: MAALOX 30 ML SUSP *UDC PO PRN (09:50)
[2022-11-30] MEDS ORDERED: LIDOCAINE 2% 100MG/5ML SDV (FOR ANES.) As Ordered ONE (10:19)
[2022-11-30] MEDS ORDERED: ONDANSETRON 4MG 2ML VIAL As Ordered ONE (10:19)
[2022-11-30] MEDS ORDERED: propofoL 200 MG/20 ML VIAL As Ordered ONE (10:19)
[2022-11-30] MEDS ORDERED: fentaNYL 100 MCG/2 ML INJECTION As Ordered ONE (10:19)
[2022-11-30] MEDS ORDERED: MIDAZOLAM INJ 2MG/2ML VIAL As Ordered ONE (10:19)
[2022-11-30] MEDS ORDERED: ROCURONIUM BROMIDE 50MG/5ML VIAL As Ordered ONE (10:19)
[2022-11-30 10:42] LABS: BASO % 0.1 % (0.0-1.0); EOS % 0.1 % (0.0-3.0); HEMATOCRIT 38.1 % (42.0-52.0); HEMOGLOBIN 12.6 g/dl (13.5-17.5); LYMPH % 7.6 % (24.0-44.0); MEAN CORPUSCULAR HEMOGLOBIN 30.9 pg (27.0-33.0); MEAN CORPUSCULAR HGB CONC 33.1 g/dl (32.0-36.5); MEAN CORPUSCULAR VOLUME 93.4 fl (80.0-96.0); MONO # 1.3 10^3/uL (0.0-0.8); MONO % 9.3 % (2.0-8.0); NEUTROPHILS # 11.2 10^3/uL (1.5-8.5); NEUTROPHILS % 82.5 % (36.0-66.0); PLATELET COUNT, AUTOMATED 164 10^3/uL (150-450); RED BLOOD COUNT 4.08 10^6/uL (4.30-6.10); WHITE BLOOD COUNT 13.6 10^3/uL (4.0-10.0)
[2022-11-30] MEDS: ACETAMINOPHEN TAB 650MG DOSE (2X325MG) PO PRN ×2 (10:50→20:54)
[2022-11-30 11:02] LABS: LIPASE 19 U/L (12-53)
[2022-11-30 11:04] LABS: ALBUMIN 3.6 G/DL (3.2-5.2); ALKALINE PHOSPHATASE 51 U/L (46-116); ALT/SGPT 23 U/L (7.0-40); AST/SGOT 25 U/L (<34); BILIRUBIN,DIRECT 0.5 MG/DL (<0.4); BILIRUBIN,TOTAL 1.2 MG/DL (0.3-1.2); BLOOD UREA NITROGEN 14 MG/DL (9-23); CALCIUM LEVEL 8.3 MG/DL (8.5-10.1); CARBON DIOXIDE LEVEL 27 MMOL/L (20-31); CHLORIDE LEVEL 104 MMOL/L (98-107); CREATININE FOR GFR 0.81 MG/DL (0.70-1.30); GLOMERULAR FILTRATION RATE > 60.0 (>60); GLUCOSE, FASTING 98 MG/DL (60-100); POTASSIUM SERUM 3.1 MMOL/L (3.5-5.1); SODIUM LEVEL 139 MMOL/L (136-145); TOTAL PROTEIN 6.3 G/DL (5.7-8.2)
[2022-11-30 11:30] LABS: ERYTHROCYTE SEDIMENTATION RATE 28 mm/hr (0-15)
[2022-11-30] MEDS ORDERED: POTASSIUM CHLORIDE 10MEQ SR TABLET PO ONE (11:35)
[2022-11-30] MEDS ORDERED: VANCOMYCIN HCL 1,000 MG, VIAL MATE ADAPTER 1 EACH in D5W 250 ML IV SCH (12:00)
[2022-11-30] MEDS: KCL 10MEQ/100ML SWI (KRUN) 10 MEQ in IV 1 EA IV SCH ×2 (12:03→15:21)
[2022-11-30] MEDS ORDERED: dexmedeTOMIDine (4MCG/ML)200MCG/50ML BTL (PRECEDEX) As Ordered ONE (12:34)
[2022-11-30] MEDS ORDERED: ACETAMINOPHEN 1000MG 100ML IV BAG As Ordered ONE (12:37)
[2022-11-30] MEDS ORDERED: ceFAZolin 2 GM/D5W 50 ML IV BAG As Ordered ONE (12:42)
[2022-11-30] MEDS ORDERED: SUGAMMADEX SODIUM 500 MG/5 ML VIAL (BRIDION) As Ordered ONE (13:05)
[2022-11-30] MEDS ORDERED: PHENYLephrine 500MCG 5ML (100MCG/ML) SYRINGE As Ordered ONE (13:43)
[2022-11-30] MEDS ORDERED: fentaNYL 100 MCG/2 ML INJECTION IV PRN (14:25)
[2022-11-30] MEDS ORDERED: LR 1,000 ML IV SCH (14:25)
[2022-11-30] MEDS ORDERED: oxyCODONE 5MG TAB PO PRN (14:25)
[2022-11-30] MEDS ORDERED: ONDANSETRON 4MG 2ML VIAL IV PRN (14:25)
[2022-11-30] MEDS: DOCUSATE SODIUM 100MG CAPSULE PO SCH ×2 (15:26→20:53)
[2022-11-30 15:30] VITALS: BP 109/60; TEMP 98.2; O2SAT 97
[2022-11-30] MEDS: PIPERACILLIN/TAZOBACTAM SOD 3.375 GM in D5W MINI-BAG PLUS 50 ML IV SCH ×2 (15:54→22:06)
[2022-11-30 16:00] VITALS: BP 100/58; TEMP 98.2; O2SAT 97
[2022-11-30 16:30] VITALS: BP 108/60; TEMP 98.6; O2SAT 100
[2022-11-30] MEDS: ENOXAPARIN 40MG/0.4ML SYRINGE (J1650 PER 10MG) SC SCH (17:05)
[2022-11-30] MEDS: MORPHINE 2 MG/ML 1ML VIAL IV PRN (17:05)
[2022-11-30 17:30] VITALS: BP 120/74; TEMP 98.8; O2SAT 98
[2022-11-30] MEDS ORDERED: VANCOMYCIN HCL 1,000 MG, VIAL MATE ADAPTER 1 EACH in D5W 250 ML IV ONE (18:00)
[2022-11-30 18:30] VITALS: BP 120/74; TEMP 99.5; O2SAT 95
[2022-11-30] MEDS ORDERED: VANCOMYCIN HCL 750 MG, VIAL MATE ADAPTER 1 EACH in D5W 250 ML IV ONE (19:00)
[2022-11-30 20:48] VITALS: BP 118/76; TEMP 97.9; O2SAT 95
[2022-12-01] MEDS: ACETAMINOPHEN TAB 650MG DOSE (2X325MG) PO PRN ×2 (00:52→07:58)
[2022-12-01] MEDS: MORPHINE 2 MG/ML 1ML VIAL IV PRN ×2 (00:56→07:57)
[2022-12-01 02:25] VITALS: BP 116/74; TEMP 99.1; O2SAT 97
[2022-12-01] MEDS: VANCOMYCIN HCL 1,000 MG, VIAL MATE ADAPTER 1 EACH in D5W 250 ML IV SCH ×2 (02:35→09:24)
[2022-12-01] MEDS: PIPERACILLIN/TAZOBACTAM SOD 3.375 GM in D5W MINI-BAG PLUS 50 ML IV SCH ×3 (03:53→15:02)
[2022-12-01 05:48] VITALS: BP 114/73; TEMP 98.8; O2SAT 99
[2022-12-01] MEDS ORDERED: SERTRALINE HCL 25 MG TABLET PO SCH (09:00)
[2022-12-01] MEDS ORDERED: TAMSULOSIN 0.4 MG CAP PO SCH (09:00)
[2022-12-01] MEDS ORDERED: MORPHINE 2 MG/ML 1ML VIAL IV ONE (09:00)
[2022-12-01 09:11] LABS: BASO % 0.2 % (0.0-1.0); EOS % 0.2 % (0.0-3.0); HEMOGLOBIN 12.2 g/dl (13.5-17.5); LYMPH # 1.3 10^3/uL (1.5-5.0); MEAN CORPUSCULAR HEMOGLOBIN 31.3 pg (27.0-33.0); MEAN CORPUSCULAR HGB CONC 33.9 g/dl (32.0-36.5); MEAN CORPUSCULAR VOLUME 92.3 fl (80.0-96.0); MONO # 1.1 10^3/uL (0.0-0.8); MONO % 8.6 % (2.0-8.0); NEUTROPHILS # 10.3 10^3/uL (1.5-8.5); NEUTROPHILS % 80.6 % (36.0-66.0); PLATELET COUNT, AUTOMATED 186 10^3/uL (150-450); WHITE BLOOD COUNT 12.8 10^3/uL (4.0-10.0)
[2022-12-01] MEDS: ENOXAPARIN 40MG/0.4ML SYRINGE (J1650 PER 10MG) SC SCH (09:22)
[2022-12-01] MEDS: DOCUSATE SODIUM 100MG CAPSULE PO SCH (09:24)
[2022-12-01 09:34] LABS: BLOOD UREA NITROGEN 12 MG/DL (9-23); CALCIUM LEVEL 9.1 MG/DL (8.5-10.1); CARBON DIOXIDE LEVEL 27 MMOL/L (20-31); CHLORIDE LEVEL 104 MMOL/L (98-107); CREATININE FOR GFR 0.72 MG/DL (0.70-1.30); GLOMERULAR FILTRATION RATE > 60.0 (>60); GLUCOSE, FASTING 107 MG/DL (60-100); MAGNESIUM LEVEL 2.2 MG/DL (1.8-2.4); POTASSIUM SERUM 3.5 MMOL/L (3.5-5.1); SODIUM LEVEL 139 MMOL/L (136-145)
[2022-12-01 14:00] VITALS: BP 123/73; TEMP 99; O2SAT 100
[2022-12-01] MEDS ORDERED: VANCOMYCIN HCL 750 MG, VIAL MATE ADAPTER 1 EACH in D5W 250 ML IV SCH (14:00)
[2022-12-01] MEDS ORDERED: VANCOMYCIN HCL 500 MG in D5W MINI-BAG PLUS 100 ML IV SCH (15:00)
== END 2022-12-01 15:50 | disposition left against medical advice (07) | DRG 951 ==
LOC: M ED 07:54 → M ED INP 09:48 → M MS5PR 15:20
PROVIDERS: ADMIT Internal Medicine; ATTEND Internal Medicine
PROC: 0R9U0ZZ Drainage of Right Metacarpophalangeal Joint, Open Approach (ICD-10-PCS; principal; 2022-11-30 16:00)
DX: L08.9 Local infection of the skin and subcutaneous tissue, unspecified (principal); F32.A Depression, unspecified; F17.210 Nicotine dependence, cigarettes, uncomplicated; H05.222 Edema of left orbit; S61.256A Open bite of right little finger without damage to nail, initial encounter; W50.3XXA Accidental bite by another person, initial encounter; Y92.9 Unspecified place or not applicable; S00.83XA Contusion of other part of head, initial encounter; Z79.899 Other long term (current) drug therapy

== ENCOUNTER → 2023-09-18 | Outpatient (CLI) | payer OTHER ==
[~2023-09-18] MED LIST changes: +CYAN1000VL IM; +FLOM0.4C39 PO; +MED REC COMMENT; +SERT25TA21 PO
== END ==
LOC: M OUTALCOH 07:54
PROVIDERS: ATTEND Psychiatry & Neurology Psychiatry
DX: Z03.89 Encounter for observation for other suspected diseases and conditions ruled out (principal)

== ENCOUNTER 2023-10-03 16:18 | Emergency (ER) | payer OTHER ==
[~2023-10-03] VITALS: Ht 180.3 cm; Wt 78.5 kg
[2023-10-03 16:20] VITALS: BP 135/71; TEMP 98; O2SAT 96
== END 2023-10-03 20:57 | disposition left against medical advice (07) ==
LOC: M ED 16:18
DX: Z53.21 Procedure and treatment not carried out due to patient leaving prior to being seen by health care provider (principal)

== ENCOUNTER 2023-10-13 15:00 | Outpatient (RCR) | payer OTHER | END 2023-10-17 | LOC: M OUTALCOH 15:00 | PROVIDERS: ATTEND Psychiatry & Neurology Psychiatry | DX: F15.20 Other stimulant dependence, uncomplicated (principal); F17.200 Nicotine dependence, unspecified, uncomplicated ==